=== PATIENT | male | born 1970 | race Caucasian/White ===

== ENCOUNTER 2017-12-31 14:19 | Emergency (ER) | payer OTHER ==
[2017-12-31] MEDS ORDERED: Morphine 4 MG/ML VIAL ONE (14:36)
[2017-12-31] MEDS ORDERED: Ondansetron ODT 8 MG TAB ONE (14:36)
[2017-12-31 14:52] LABS: #Basophils 0.1 thou/uL (0.0-0.2); #Eosinphils 0.2 thou/uL (0.0-0.7); #Lymphocytes 1.7 thou/uL (1.20-3.40); #Monocytes 1.1 thou/uL (0.11-0.59); #Neutrophils 13.7 thou/uL (1.40-6.50); %Basophils 0.3 % (0.0-1.0); %Lymphocytes 10.1 % (21.0-51.0); %Monocytes 6.5 % (0.0-10.0); %Neutrophils 82.1 % (42.0-75.0); Hemoglobin 16.1 g/dL (14.0-18.0); Mean Corpuscular HGB CONC 34.5 g/dL (32.0-36.0); Mean Platelet Volume 8.3 fL (7.4-10.4); Platelet Count 158 thou/uL (130-400); RBC Distribution Width 12.3 % (11.5-14.5); Red Blood Cell (RBC) Count 5.55 mill/uL (4.70-6.10); White Blood Cell (WBC) Count 16.7 thou/uL (4.8-10.8)
[2017-12-31 15:00] LABS: Bilirubin Small (Negative); Blood, Urine Large (Negative); Clarity CLEAR (Clear); Glucose, Urine (Dipstick) >=1000 mg/dL (Negative); Leukocyte Negative (Negative); Nitrite Negative (Negative); Protein, Urine (Dipstick) 30 mg/dL (Neg-Trace); Specific Gravity, Urine 1.038 (1.002-1.036); Urobilinogen 0.2 mg/dL (0.2-1.0); pH, Urine 5.5 (5.0-9.0)
[2017-12-31] MEDS ORDERED: Morphine 10 MG/ML VIAL ONE (15:04)
[2017-12-31 15:08] LABS: Bacteria/HPF None Seen HPF (None Seen); Hyaline Casts/LPF 0-3 HYALINE CAST LPF (0-3 Hyaline); Pathc Cast-AUWi Flag 0.58 (0-2.49); RBC/HPF GREATER THAN 50-TNTC HPF (0-3); Squamous Epithelial 0-3 HPF (0-3); WBC/HPF 0-3 HPF (0-3)
[2017-12-31 15:11] LABS: ALT (SGPT) 31 U/L (8-55); AST (SGOT) 30 U/L (5-34); Albumin 4.5 g/dL (3.5-5.0); Alkaline Phosphatase 115 U/L (40-150); Anion Gap 16 mmol/L (10-20); BUN (Urea Nitrogen) 10 mg/dL (8.9-20.6); Bilirubin, Total 1.1 mg/dL (0.2-1.2); Calc. Creatinine Clearance 0 mL/min (70-130); Calcium 9.7 mg/dL (7.8-10.44); Carbon Dioxide 20 mmol/L (22-29); Chloride 102 mmol/L (98-107); Estimated GFR-MDRD 47; Globulin 3.3 g/dL (2.4-3.5); Glucose 350 mg/dL (70-105); Lipase 33 U/L (8-78); Potassium 3.6 mmol/L (3.5-5.1); Protein, Total 7.8 g/dL (6.0-8.3); Sodium 134 mmol/L (136-145)
[2017-12-31] MEDS ORDERED: Ketorolac Tromethamine 30 MG/ML VIAL ONE (15:26)
--- NOTE | 2017-12-31 15:53 | CT ---
CT OF ABDOMEN AND PELVIS PERFORMED WITHOUT CONTRAST ENHANCEMENT: HISTORY: Left flank pain. FINDINGS: The lung bases are clear. There is a tiny hypodensity within the right lobe of the liver indeterminate but statistically most l ikely a cyst is subcentimeter in size. The spleen is slightly enlarged measuring 15 cm in length. T he pancreas region is unremarkable and the gallbladder has been removed. Right and left adrenal glands are normal. There are bilateral renal calculi with a punctate mid pole nonobstructing right renal calculus. Two upper pole left renal calculi which are in the 5-6 mm rang e and at least 2 tiny punctate lower pole left renal calculi. There is also left-sided hydronephrosi s related to a 5-6 mm proximal ureteral calculus located at the L3-4 level. There is no significant periaortic or mesenteric adenopathy. The appendix is more retrocecal in loca tion and normal in appearance. CT OF PELVIS PERFORMED WITHOUT CONTRAST ENHANCEMENT: Prostate calcifications are noted. Some minimal sigmoid diverticulosis is seen. No adenopathy or ma ss. IMPRESSION: 1. Mild splenomegaly. 2. Bilateral renal calculi. 3. Left-sided hydronephrosis and hydroureter related to a proximal left ureteral calculus located at the L3-4 level. 4. Sigmoid diverticulosis. POS: [facility]
== END 2017-12-31 18:52 | disposition home or self-care (01) ==
LOC: ERS 14:19
DX: N13.2 Hydronephrosis with renal and ureteral calculous obstruction (principal); I10 Essential (primary) hypertension; E11.65 Type 2 diabetes mellitus with hyperglycemia; E78.00 Pure hypercholesterolemia, unspecified; F17.290 Nicotine dependence, other tobacco product, uncomplicated
CPT/HCPCS: 74176; 80053; 81003; 81015; 83690; 85025; 87077; 87086; 96361; 96374; 96375; J1885; J2270

== ENCOUNTER 2018-05-04 10:46 | Outpatient (CLI) | payer OTHER ==
--- NOTE | 2018-05-04 12:12 | RAD ---
RADIOGRAPH ABDOMEN ONE VIEW: Date: 05-04-18 Time: 10:59 a.m. History: 47-year-old male with left flank pain and left calculus of kidney. Comparison: CT 12-31-17 FINDINGS: Again noted are the two renal calculi adjacent to each other at the upper pole of the left kidney. Th e larger one is approximately [address] showed a calculus in the left proximal ureter at the L2-3 level. Currently, there is a very similar appearing calculus, but this one is at the L3-4 le nuris. It is important to note that this patient only has four lumbar type vertebrae, not five, such th at the lumbosacral junction is L4-S1. There is a single surgical clip in the right side of the abdomi nal cavity. Bowel gas pattern is normal. IMPRESSION: 1. An approximately 7 mm calculi in the left proximal/midureter at the L3-4 level (patient only has f our lumbar type vertebrae). This appears very similar to the one at the L2-[address] of . 2. The two calculi at the upper pole of the left kidney, with the larger one 7 mm in size, remain. POS: [facility]
== END 2018-05-04 10:47 | disposition home or self-care (01) ==
LOC: BICRAD 10:46
PROVIDERS: ATTEND Urology
DX: N20.2 Calculus of kidney with calculus of ureter (principal)
CPT/HCPCS: 74018

== ENCOUNTER 2018-05-12 07:41 | Day surgery (SDC) | payer OTHER ==
[2018-05-11 13:13] VITALS: BMI 28.5
[2018-05-12] MEDS ORDERED: CEFAZOLIN/Water 2 GM/20 ML SYRINGE ONE (08:15)
[2018-05-12] MEDS ORDERED: Ondansetron HCl/PF 4 MG/2 ML Vial ONE (08:38)
[2018-05-12] MEDS ORDERED: Morphine 4 MG/ML VIAL ONE (08:38)
[2018-05-12 08:46] LABS: Hemoglobin 13.9 g/dL (14.0-18.0); Mean Corpuscular HGB CONC 34.5 g/dL (32.0-36.0); Mean Corpuscular Volume 86.9 fL (78.0-98.0); Mean Platelet Volume 8.7 fL (7.4-10.4); Platelet Count 137 thou/uL (130-400); RBC Distribution Width 11.8 % (11.5-14.5); Red Blood Cell (RBC) Count 4.65 mill/uL (4.70-6.10); White Blood Cell (WBC) Count 5.8 thou/uL (4.8-10.8)
[2018-05-12 09:00] LABS: Anion Gap 16 mmol/L (10-20); BUN (Urea Nitrogen) 16 mg/dL (8.9-20.6); Calc. Creatinine Clearance 60 mL/min (70-130); Calcium 9.7 mg/dL (7.8-10.44); Carbon Dioxide 16 mmol/L (22-29); Chloride 105 mmol/L (98-107); Estimated GFR-MDRD 36; Glucose 170 mg/dL (70-105); Potassium 4.2 mmol/L (3.5-5.1); Sodium 133 mmol/L (136-145)
[2018-05-12] MEDS ORDERED: Iothalamate Meglumine 60% 50 ML VIAL FS ONE (09:11)
[2018-05-12 09:16] LABS: Platelet Count 137 thou/uL (130-400)
[2018-05-12] MEDS ORDERED: Fentanyl 250 MCG/5 ML VIAL ONE (09:17)
[2018-05-12 09:24] LABS: INR-International Normal Ratio 1.1; PTT 31.6 SEC (22.9-36.1); Prothrombin Time 14.1 SEC (12.0-14.7)
--- NOTE | 2018-05-12 09:59 | RAD ---
AP ABDOMEN: History: Patient with renal calculi. FINDINGS: AP abdomen demonstrates a large amount of stool in the colon. Two areas of hyperdensity seen in the upper pole of the left kidney compatible with upper pole left r enal calculi. These do not appear to be within the renal pelvis or ureters. No evidence of bowel obstruction or ileus seen. IMPRESSION: 1. Upper pole left renal calculi. 2. Large amount of stool in the colon. POS: [facility]
[2018-05-12] MEDS ORDERED: Fentanyl 100 MCG/2 ML VIAL ONE (11:40)
--- NOTE | 2018-05-12 12:11 | OP ---
DATE OF PROCEDURE: 05/12/2018 PREOPERATIVE DIAGNOSES: Left ureteral and left renal stone. POSTOPERATIVE DIAGNOSES: Left ureteral and left renal stone. PROCEDURE PERFORMED: Left ureteral and left renal ESWL, cystoscopy, left retrograde, left stent. SURGEON: Dr. Anthony Driver. ANESTHESIA: General. ESTIMATED BLOOD LOSS: Not recorded. FINDINGS: He had a 6 mm left ureteral stone that was sitting over the SI joint that was treated ante riorly with 2500 shocks at a maximum KV level of 5. It did appear to fragment well. He had 2 stones in the upper pole calyceal system that were side by side, each 5-6 mm in size. One was treated with 500 shocks at level 4 and fragmented well. The other was treated with 1100 shocks at level 4 and th e last 200 at level 5 and it also appeared to fragment well. A 4.8 x 26 cm double-J stent was placed at the end of the case and a string was left attached to it. INDICATIONS FOR SURGERY: This is a 47-year-old white male with symptomatic left ureteral colic and a lso has an existing left renal stone. He has had them before and has been treated once with lithotri psy and it broke up very well. He would like to have this left ureteral stone treated as it is reall y bothering him for the last few days, even longer than that. If possible, he would like to have the left renal stone treated. So the plan will be if the left ureteral stone breaks up well to treat th e left renal stones and because of the stone burden have a stent placed for sure if that is the case. His creatinine was 2.0 today, so we think he needs a stent regardless because of that. OPERATIVE TECHNIQUE: After documenting normal preoperative blood work and platelet function assay, elise mckeon was taken to the operating suite. He has been given 2 grams of Ancef IV piggyback. He was placed in the supine position on the treatment table. PlexiPulses were placed on his lower extremities and turned on. A aids counselor KUB had shown that the stone that had been by L3-L4 had actually moved down over the pelvic brim in the area of the left SI joint. It was visible. We could not treat it from medicine technologist iorly so was we treated anteriorly. The stone was placed in treatment focal point and after he was c oupled to the lithotripsy unit shockwave was commenced. No pause was given. He went up to a level 5 after about 2500 shocks, we felt that the stone had fragmented very well. At this point, he was rep ositioned to treat the left upper pole stones. He was coupled to the lithotripsy unit. These were p laced in treatment focal point. Shockwave therapy was commenced. The stones very quickly from each other and a we followed the one that move more medially and treated that. A pause was give n after a couple 100 shocks, and then we increased our kV up to level 4 and kept our rate at 60, this one broke up very easily and by 500 shocks, we saw no further stone remaining. Then we moved back t o the original position to the other stone that was in the upper pole. We treated this one with a to isabella of 900 shocks at level 4 and 200 shocks at level 5 and we increased the rate when we went to leve l 5 from 60-80 pulses per minute. At this point, the stones all appeared to fragment well, so he was placed in the dorsal lithotomy position and sterilely prepped and draped. Cystoscopy was performed with a 22-Eritrean sheath. This was well lubricated and passed under direct vision through the male ur ethra and into the urinary bladder with aid of a video camera and monitor and a 30-degree lens. Ther e was some blood and stone debris on the floor. This was washed out. The bladder showed no other si gn of tumor, foreign body, or stone. There was some bloody efflux from the left ureteral orifice. A 5-Eritrean Pollack catheter was flushed with contrast and placed about a cm up the left ureteral orifi ce. Contrast was injected in a retrograde manner. There is little filling defect just above the lef t SI joint, which could be a small remaining fragment or perhaps a blood clot. There was no evidence of other abnormality along the course of the ureter. A guidewire was fed up the open-ended catheter . The open-ended catheter was removed. A 4.8 x 26 cm double-J stent was then passed over the guidew anthony and pushed up into place with aid of a pusher so its proximal end coiled in the renal pelvis and its distal end coiled in the bladder when the wire was removed. The bladder was drained, the instrum ents were removed. The string that was coming out the urethral meatus had been tied so we cut it a l ittle bit shorter. At this point, he was taken out of the dorsal lithotomy position, awakened and ex tubated and taken by stretcher to the recovery room.
[2018-05-12] MEDS ORDERED: Metoclopramide HCl 10 MG/2 ML VIAL ONE (17:34)
[2018-05-12] MEDS ORDERED: ePHEDrine/0.9% NaCl/PF SYRINGE 50 mg/10 ml ONE (17:34)
[2018-05-12] MEDS ORDERED: Lidocaine 1% PF 5 ML VIAL ONE (17:34)
[2018-05-12] MEDS ORDERED: Dexamethasone 20 MG/5 ML VIAL ONE (17:34)
[2018-05-12] MEDS ORDERED: PROPOFOL 200 MG/20 ML VIAL ONE (17:34)
[2018-05-12] MEDS ORDERED: Glycopyrrolate 0.2 MG/ML 5 ML SYRINGE ONE (17:34)
== END 2018-05-12 14:04 | disposition home or self-care (01) ==
LOC: SDC 07:41
PROVIDERS: ATTEND Urology
PROC: 0T778DZ Dilation of Left Ureter with Intraluminal Device, Via Natural or Artificial Opening Endoscopic (ICD-10-PCS; principal; 2018-05-12)
PROC: 0TF4XZZ Fragmentation in Left Kidney Pelvis, External Approach (ICD-10-PCS; principal; 2018-05-12)
DX: N20.2 Calculus of kidney with calculus of ureter (principal); E11.9 Type 2 diabetes mellitus without complications; I10 Essential (primary) hypertension; Z79.82 Long term (current) use of aspirin; Z79.84 Long term (current) use of oral hypoglycemic drugs; Z79.899 Other long term (current) drug therapy
CPT/HCPCS: 74018; 80048; 85027; 85576; 85610; 85730; 93005; 93010; 96374; C1758; J1100; J2001; J2270; J2405; J2704; J2765; J3010; Q9961